=== PATIENT | female | born 2000 | race Caucasian/White ===

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

== ENCOUNTER 2019-02-12 06:23 | Day surgery (SDC) | payer OTHER ==
[2019-02-12] VITALS (9 sets, daily range): BP systolic 98–120; BP diastolic 58–76; PULSE 52–76; RESP 15–35; Ht 162.6 cm; Wt 63.6 kg
[~2019-02-12] VITALS: Ht 162.6 cm; Wt 63.6 kg
[2019-02-12] MEDS ORDERED: BUPIVACAINE 0.5% (SDV) 30 ML INJ ONE (06:51)
[2019-02-12] MEDS ORDERED: DEXAMETHASONE 4 MG/ML 1 ML INJ ONE (06:51)
[2019-02-12] MEDS ORDERED: POLYMYXIN/BACITRACIN 1L IRRIG ONE (06:51)
[2019-02-12] MEDS ORDERED: LIDOCAINE 2% (MDV) 20 ML INJ ONE (06:51)
[2019-02-12] MEDS ORDERED: ISOT40CA4 PO (06:54)
--- NOTE | 2019-02-12 07:19 | PREAC ---
Date/Time of Note Date/Time of Note DATE: 02/12/19 TIME: 07:18 Anesthesia Eval and Record Evaluation Time Pre-Procedure Interview DATE: 02/12/19 TIME: 07:18 Age 18 Sex female NPO: 8 hrs Preoperative diagnosis right foot deformity Planned procedure right first metatarsal bunionectomy and osteotomy Past Medical History Past Medical History: None Surgery & Anesthesia Issues No known issue Meds Anticoagulation: No Beta Seamus within 24 hr: No Reason Beta Seamus not given: Pt. not on B-Seamus Reported Medications Isotretinoin (Claravis) 40 Mg Capsule, 40 MG PO DAILY, CAP 02/12/19 Meds reviewed: Yes Allergies Coded Allergies: No Known Allergies (Verified Allergy, Unknown, 02/12/19) Allergies Reviewed: Yes Labs/Studies Labs Reviewed: Reviewed by anesthesiologist test: Negative Pre-procedure Exam Airway: Adequate mouth opening, Adequate thyromental dist Mallampati: Mallampati I Teeth: Normal Lung: Normal Heart: Normal ASA Physical Status ASA physical status: 1 Emergency: None Planned Anesthetic General/MAC: LMA Planned Pain Management Parenteral pain med Pre-operative Attestations Prior to commencing anesthesia and surgery, the patient was re-evaluated, there was verification of: *The patient's identity *The results of appropriate recent lab work and preoperative vital signs *The above evaluation not changing prior to induction *Anesthetic plan, risk benefits, alternative and complications discussed with patient/family; questions answered; patient/family understands, accepts and wishes to proceed. URSULA URBANO Feb 12, 2019 07:19
[2019-02-12] MEDS ORDERED: PROPOFOL 100 ML ONE (07:25)
--- NOTE | 2019-02-12 07:25 | HPN ---
Date/Time of Note Date/Time of Note DATE: 02/12/19 TIME: 07:25 Interval H&P Admission Note Pt. seen H&P reviewed: No system changes NADIA DE LEON DPM Feb 12, 2019 07:25
[2019-02-12] MEDS ORDERED: FENTAnyl 50 MCG/ML VIAL ONE (07:26)
[2019-02-12] MEDS ORDERED: CEFAZOLIN 1 GM INJ ONE (08:17)
[2019-02-12] MEDS ORDERED: KETOROLAC 30 MG INJ ONE (08:17)
[2019-02-12] MEDS ORDERED: LIDOCAINE 2% (SDV) 5 ML INJ ONE (08:17)
[2019-02-12] MEDS ORDERED: hydrALAzine 20 MG INJ IV PRN (08:30)
[2019-02-12] MEDS ORDERED: EPHEDrine SULFATE 50 MG/5 ML SYG IV PRN (08:30)
[2019-02-12] MEDS ORDERED: FENTAnyl 50 MCG/ML VIAL IV PRN ×3 (08:30)
[2019-02-12] MEDS ORDERED: ALBUTEROL 0.083% (NEB) 2.5 MG/3 ML AMP HHN PRN (08:30)
[2019-02-12] MEDS ORDERED: DIPHENHYDRAMINE 50 MG INJ IV PRN (08:30)
[2019-02-12] MEDS ORDERED: KETOROLAC 30 MG INJ IV PRN (08:30)
[2019-02-12] MEDS ORDERED: LABETALOL HCL 20MG INJ IV PRN (08:30)
[2019-02-12] MEDS ORDERED: ONDANSETRON 4 MG INJ IV PRN (08:30)
[2019-02-12] MEDS ORDERED: METOCLOPRAMIDE 10 MG INJ IV PRN (08:30)
[2019-02-12] MEDS ORDERED: MEPERIDINE 25 MG INJ IV PRN (08:30)
[2019-02-12] MEDS ORDERED: OXYCODONE/ACETAMINOPHEN (5/325) TAB PO PRN ×2 (08:30)
--- NOTE | 2019-02-12 08:31 | PAC ---
Date/Time of Note Date/Time of Note DATE: 02/12/19 TIME: 08:31 Post-Anesthesia Notes Post-Anesthesia Note Last documented vital signs Vital Signs Date Temp Pulse Resp B/P (MAP) Pulse Ox O2 O2 Flow FiO2 Time Delivery Rate 02/12/19 60 16 116/74 98 Room Air 0831 (88) Activity: WNL Respiratory function: WNL Cardiovascular function: WNL Mental status: Baseline Pain reasonably controlled: Yes Hydration appropriate: Yes Nausea/Vomiting absent: Yes URSULA URBANO Feb 12, 2019 08:31
--- NOTE | 2019-02-12 08:32 | SIPON ---
Date/Time of Note Date/Time of Note DATE: 02/12/19 TIME: 08:30 Operative Report Preoperative Diagnosis bunion deformity with hallux valgus right foot Postoperative Diagnosis bunion deformity with hallux valgus right foot Operation/Procedure Performed bunionectomy with osteotomy right first metatarsal Surgeon see signature line assistant professor sculpture none Anesthesia: MAC Estimated blood loss: none Transfusion Required none Specimen none Grafts/Implants none Complications none NADIA DE LEON DPMargarita Feb 12, 2019 08:31
[2019-02-12] MEDS ORDERED: LACTATED RINGER'S 1,000 ML IV SCH (09:00)
--- NOTE | 2019-02-12 09:33 | OPR ---
DATE OF OPERATION: 02/12/2019 SURGEON: Hitesh Farrar DPM ANESTHESIOLOGIST: Dr. Copeland ANESTHESIA: Local with IV sedation. PREOPERATIVE DIAGNOSIS: Painful bunion with hallux valgus, right foot. POSTOPERATIVE DIAGNOSIS: Painful bunion with hallux valgus, right foot. OPERATION PERFORMED: Bunionectomy with distal head osteotomy, right first metatarsal. DESCRIPTION OF PROCEDURE: The patient was brought into the operating room, placed on the table in a secure supine position. Cardiac monitoring, IV sedation, and an ankle pneumatic tourniquet were util ized for this case. Preoperatively, a total of 20 mL of 0.5% Marcaine plain mixed with 2% lidocaine plain were infiltrated into the right foot in the form of a Walsh block. Upon achieving anesthesia, t he right foot and leg were prepped and draped in the usual sterile manner. The ankle pneumatic tourn iquet was inflated to 250 mmHg. Procedure #1 was then performed. A bunionectomy with distal head os teotomy, right first metatarsal. A 4 cm dorsal medial incision was performed along the first metatar sophalangeal joint. The incision was deepened. Superficial bleeders were cauterized and bovied as n ecessary. The incision was deepened where a linear capsulotomy was performed. The capsule was then reflected dorsally and plantarly exposing the hypertrophic medial eminence. The hypertrophic medial eminence was resected with a power sagittal saw. Next, a 0.45 Evan wire was inserted from media l to lateral serving as an access guide. The access guide was inserted 1.5 cm proximal to the metata rsophalangeal joint. A Chevron osteotomy was then performed 60 degree angles to the access guide. T he osteotomy was performed through and through. The capital fragment was then translocated laterally 2 mm and fixated with a 16 x 3.0 mm cannulated Acosta screw. The metatarsal Promus varus angle was reduced. The hallux was in an appropriate alignment. The surgical site was then irrigated with jasper rile saline mixed with bacitracin solution. The remaining bone was transected with a power sagittal saw. The area was rasped smooth. No sharp edges were left behind. The surgical site was irrigated again with sterile saline bacitracin solution. The capsule was reapproximated with 2-0 Vicryl simple interrupted sutures. Subcutaneous tissue was closed with 4-0 Vicryl simple interrupted sutures. Th e skin edges were reapproximated with 3-0 running subcuticular Prolene stitch. The dressing consiste d of Xeroform gauze, 1/4-inch Steri-Strips, tincture of benzoin, 4 x 4 gauze, 4-inch Kerlix roll and 2 inch Coban into a semi-compressive dressing. Patient tolerated the above procedure well, left the OR with vital signs stable and satisfactory. Patient will follow up 1 week postop. Dictated By: HITESH HONEYCUTT/GERALDO Conf#: [id number] DID#: [id number]
== END 2019-02-12 09:48 | disposition home or self-care (01) ==
LOC: SDS 06:23
PROVIDERS: ATTEND Podiatrist Primary Podiatric Medicine
DX: M21.611 Bunion of right foot (principal); M20.11 Hallux valgus (acquired), right foot
CPT/HCPCS: 28299; C1713; J0690; J1100; J1885; J3010; Z7512; Z7610